=== PATIENT | female | born 2000 | race African-American/Black ===

== ENCOUNTER 2023-11-12 10:44 | Emergency (ER) | payer BC, SELFPAY ==
--- NOTE | ~2023-11-12 | CT_ITS ---
EXAMINATION: CT ABDOMEN AND PELVIS WITH CONTRAST CLINICAL INFORMATION: Abdominal pain and rectal bleeding COMPARISON: KUB from earlier the same day TECHNIQUE: Multidetector volumetric images were obtained from the superior aspect of the liver through the pubic symphysis following administration 85 mL of Omnipaque 350 intravenous contrast. Sagittal and coronal reformatted images were obtained on the technologist's workstation. Oral contrast: Yes This CT examination was performed using dose optimization techniques as appropriate, variously including the following: *Automated exposure control *Adjustment of mA and/or kV according to patient size (this includes techniques or standardized protocols for targeted exams where dose is matched to indication/reason for exam; i.e. extremities or head) *Use of iterative reconstruction technique DLP: 507 mGy-cm FINDINGS: LUNG BASES: The visualized lung bases are unremarkable. LIVER, GALLBLADDER, AND BILIARY TREE: The liver is normal in size, shape, and attenuation. No focal hepatic lesion or biliary ductal dilatation is present. The gallbladder is unremarkable with no evidence of radiopaque gallstones, gallbladder wall thickening, or obvious pericholecystic inflammatory changes. PANCREAS: Unremarkable. SPLEEN: Unremarkable. ADRENAL GLANDS: Unremarkable. KIDNEYS AND URETERS: The kidneys are normal in size, shape, and attenuation. No hydronephrosis, hydroureter, or calculi seen. No perinephric stranding. BLADDER: Unremarkable. GASTROINTESTINAL TRACT: Severe constipation. The small and large bowel are unremarkable. The appendix is unremarkable. ABDOMINAL WALL: No significant hernia is appreciated. LYMPH NODES: Normal. VASCULAR: Unremarkable. PELVIC VISCERA: IUD in the uterus satisfactory position. OSSEOUS STRUCTURES: Unremarkable. CT/CT abdomen pelvis w IV con IMPRESSION: Severe constipation. Fleischner guidelines were followed.
--- NOTE | ~2023-11-12 | XR_ITS ---
EXAMINATION: XR ABDOMEN KUB CLINICAL INDICATION: Constipation COMPARISON: None available. TECHNIQUE: AP view of the abdomen. FINDINGS: AP supine x-rays of the abdomen show nonspecific bowel gas pattern. No abnormal bowel dilatation is seen. Fecal shadows are seen filling the colon down to rectosigmoid junction. XR/XR KUB IMPRESSION: 1. Diffuse fecal retention in the colon down to the rectosigmoid junction without abnormal dilatation. 2. No diagnostic radiographic signs of intestinal obstruction on supine x-ray.
[2023-11-12 11:09] VITALS: BP 138/86; PULSE 95; RESP 20; TEMP 36.8; O2SAT 99; BMI 29.5
--- NOTE | 2023-11-12 11:18 | ED_ITS ---
HPI - General Adult General Chief complaint: GI Bleed Stated complaint: Rectal bleed Time Seen by Provider: 11/12/23 15:44 Source: patient and RN notes reviewed Mode of arrival: ambulatory Limitations: no limitations History of Present Illness HPI narrative: This is a 23-year-old female, with a history of diabetes, presenting to the emergency department for evaluation of rectal bleeding which started yesterday. Patient states that she has been constipated over the last several days. She states that she has been straining to have a bowel movement for the last several days. She states that she is now having rectal bleeding which started yesterday. She states that the rectal bleeding is so significant that it feels the entire toilet. She reports that she developed lower abdominal pain 2 hours into her waiting in the waiting room in the emergency room today. She states that she feels as though she needs to have a bowel movement but is unable to do so. She denies any fevers, chills, chest pain, shortness of breath. She does endorse having some nausea. Reports decreased appetite secondary to her pain. Denies history of similar symptoms in the past. She took MiraLax yesterday without any relief. No other complaints or concerns at this time. MD complaint: Rectal bleeding, abdominal pain Onset (ago): day(s) Severity: moderate Quality: crushing Pain Consistency: constant Relieving factors: none Exacerbating factors: none Associated symptoms: nausea/vomiting Treatments prior to arrival: none Related Data Previous Rx's Medication Instructions Recorded magnesium citrate 300 ml PO ONCE #296 mL 11/12/23 polyethylene glycol 3350 17 17 g PO DAILY 2 weeks #238 grams 11/12/23 gram/dose oral powder (Miralax) Allergies Allergy/AdvReac Type Severity Reaction Status Date / Time No Known Allergies Allergy Verified 11/12/23 11:08 Review of Systems 2 Review of Systems: Yes all other systems are reviewed and are negative Constitutional: Constitutional: Reports as per [facility] Past Medical History Attestation statement: The following information was validated with the patient. Social History Social History Advance Directives: No Advance Directives Information Provided: No Physical Exam ED Vital Signs: Vital Signs - 24 hr 11/12/23 11:09 11/12/23 17:40 Temperature 98.3 F 98.8 F Pulse Rate 95 94 Respiratory Rate 20 16 Blood Pressure 138/86 117/71 Pulse Oximetry 99 94 Oxygen Delivery Method Room Air Room Air BMI result Body Mass Index 29.5 Const General: cooperative, comfortable and no acute distress Orientation/consciousness: patient oriented x3 Limitations: no limitations HENMT Head: Yes normal to inspection, Yes normocephalic and Yes atraumatic Ears: hearing grossly normal bilaterally General nose exam: Normal external nose present Face and sinus: Yes normal facial exam Mouth: Normal oral and palatal mucosa present, oropharynx normal and moist mucous membranes Throat: Yes posterior oropharynx normal Eyes General: appearance normal, both eyes and all related structures Eyelids: Yes eyelids normal Conjunctivae: conjunctivae normal Sclerae: sclerae normal Pupils: Equal, round and reactive pupils present EOM: EOMs intact bilaterally Neck Neck: Yes normal visual inspection, Yes full ROM and Yes no lymphadenopathy Lymphatic: no lymphadenopathy noted Chest Chest palpation & inspection: normal inspection of the chest Resp Effort & Inspection: normal respiratory effort and able to speak in complete sentences Auscultation: clear to auscultation bilaterally, no crackles, no rales, no rhonchi and no wheezes Cardio Rate: regular rate Rhythm: regular rhythm Heart sounds: S1 normal heart sound present and S2 normal heart sound present GI Other: Rectal examination performed with Raven lambert RN present. No external hemorrhoid noted, no internal more noted no bright red blood per rectum. Light brown stool noted. Normal rectal tone Abdomen with tenderness palpation in the periumbilical region, no rebound or guarding hypoactive bowel sounds present Inspection: Yes normal to inspection Skin General skin exam: no rashes or lesions noted Trauma: no lacerations or abrasions Wounds: no wounds Neuro General: patient oriented x3 and moves all extremities Cranial nerves: Yes Equal, round and reactive pupils present Extrem General: Yes normal to inspection Right upper extremity: normal to inspection Left upper extremity: normal to inspection Right lower extremity: normal to inspection Left lower extremity: normal to inspection Course Course Course Narrative: This is a rapid medical exam. Deferred additional HPI, ROS, PE to primary provider. 23 yo female here with constipation, rectal pain/pressure. Will order KUB VSS Reevaluation(s) Reevaluation #1: Stool occult is positive, H&H revealing microcytic anemia, no previous for comparison. Sign-out given to my colleague, Stephan carmichael pending CT abdomen, and chemistry. Time: 19:16 Reevaluation #2: Patient received in sign-out at change of shift pending CT scan of the abdomen pelvis. Patient's CT scan shows severe constipation. No evidence of infectious process or obvious hemorrhage. Patient's chemistries without any significant abnormality. Plan to treat the constipation and refer the patient for outpatient GI follow-up. This was discussed with the patient Time: 22:13 Medications Administered Discontinued Medications Generic Name Dose Route Start Last Admin Trade Name Tita PRN Reason Stop Dose Admin Iohexol 100 ml 11/12/23 20:19 11/12/23 20:19 Iohexol 350 Mg/Ml 100 Ml Infus..Btl IV 11/12/23 20:20 85 ml ONCE ONE Administration Ondansetron HCl 4 mg 11/12/23 19:11 11/12/23 20:27 Ondansetron Hcl 4 Mg/2 Ml Vial IVPUSH 11/12/23 19:12 4 mg ONCE ONE Administration Medical Decision Making Medical Decision Making [facility] Narrative: This is a 23-year-old female, with a history of diabetes, presenting to the emergency department for evaluation of abdominal pain, rectal bleeding, and constipation. On arrival, vital signs within normal limits. A KUB x-ray was obtained, revealing diffuse fecal retention in the colon down to the recto sigmoid junction without abnormal dilatation. No signs of intestinal obstruction on supine x-ray. When patient reports that she is having rectal bleeding she states that it is filling the toilet. Given significant amount of rectal bleeding, will obtain labs, stool occult, and CT abdomen. Patient will be medicated with Zofran Plan: Labs, stool occult, CT abdomen Differential Diagnosis Differential Diagnoses: The differential diagnosis associated with the presentation includes Diverticulitis, diverticulosis, colitis, bowel obstruction, constipation Admission/Observation Consideration of admission/observation: Escalation of care including admission/observation considered Patient would have been admitted to the hospital had her work up had any findings where hospital admission was appropriate and her clinical presentation warranted hospital admission. Lab Data MDM Lab Attestation statement: I reviewed the patient's lab results. No leukocytosis, H&H revealing microcytic anemia with an H&H of 11/35. No previous for comparison. 11/12/23 18:57 11/12/23 18:57 Labs: Lab Results 11/12/23 Range/Units 18:57 WBC 8.7 (4.8-10.8) X10*3/uL RBC 4.84 (4.20-5.50) X10*6/uL Hgb 11.0 L (12.0-16.0) g/dl Hct 35.0 L (37.0-47.0) % MCV 72.3 L (80.0-98.0) fL MCH 22.7 L (27.0-33.0) pg MCHC 31.4 (31.0-35.0) g/dl RDW 14.6 (11.0-16.0) % Plt Count 276 (160-400) X10*3/uL MPV 9.3 L (9.4-12.3) fL Immature Gran % (Auto) 0.2 (0.0-0.4) % Neut % (Auto) 54.8 (45-73) % Lymph % (Auto) 37.5 (20-40) % [place] % (Auto) 7.3 (2-11) % Eos % (Auto) 0.1 (0-4) % Baso % (Auto) 0.1 (0-2) % Lymph # (Auto) 3.2 (1.2-4.9) X10*3/uL [place] # (Auto) 0.6 (0.1-1.2) X10*3/uL Eos # (Auto) 0.0 (0.0-0.4) X10*3/uL Baso # (Auto) 0.0 (0.0-0.2) X10*3/uL Abs Immat Gran (auto) 0.02 (0.00-0.03) X10*3/uL Absolute Neuts (auto) 4.7 (2.0-8.3) x10*3/uL Absolute Nucleated RBC 0.000 (0.0-0.012) X10*3/uL Nucleated RBC % (auto) 0.0 (0.0-0.2) /100WBC PT 13.4 H (11.1-13.3) SEC INR 1.1 (0.9-1.1) APTT 37.3 H (26.0-36.8) SEC Sodium 139 (135-145) mmol/L Potassium 3.7 (3.3-5.1) mmol/L Chloride 108 (96-108) mmol/L Carbon Dioxide 23 (22-29) mmol/L Anion Gap 12 (12-20) BUN 6 L (9-16) mg/dL Creatinine 0.69 (0.5-1.4) mg/dL Estim Creat Clear Calc 132.7 Estimated GFR > 60 Random Glucose 87 (60-115) mg/dL Calcium 9.1 (8.4-10.2) mg/dL Magnesium 1.9 (1.6-2.6) mg/dL Total Bilirubin 0.5 (0.0-1.0) mg/dL AST 22 (5-31) U/L ALT 13 (0-31) U/L Alkaline Phosphatase 50 (39-117) U/L Total Protein 7.2 (6.5-8.0) g/dL Albumin 4.3 (3.5-5.0) g/dL Lipase 13 (8-78) U/L Beta HCG, Quant < 2 mIU/mL Stool Occult Blood POSITIVE (NEGATIVE) Radiology Impression Discussion of test interpretation with radiology: I have reviewed the radiologist's reading. Radiologist Impression: EXAMINATION: XR ABDOMEN KUB CLINICAL INDICATION: Constipation COMPARISON: None available. TECHNIQUE: AP view of the abdomen. FINDINGS: AP supine x-rays of the abdomen show nonspecific bowel gas pattern. No abnormal bowel dilatation is seen. Fecal shadows are seen filling the colon down to rectosigmoid junction. XR/XR KUB IMPRESSION: 1. Diffuse fecal retention in the colon down to the rectosigmoid junction without abnormal dilatation. 2. No diagnostic radiographic signs of intestinal obstruction on supine x-ray. Dictated By: Hannah Santiago Discharge Plan Discharge Clinical Impression: Constipation, Bright red rectal bleeding Patient Disposition: Home, Self-Care Instructions: Constipation (ED), Rectal Bleeding (ED) Additional Instructions: Your workup in the ER today was reassuring. Your CT scan did show severe constipation I recommend drinking about 64 oz of water daily especially if you feel you do not drink any water You should take MiraLax every night for the next 2 weeks Take magnesium citrate, the entire bottle tomorrow Call GI, Dr. Serna to schedule follow-up You may require an outpatient colonoscopy Prescriptions: New polyethylene glycol 3350 [Miralax] 17 gram/dose powder 17 g PO DAILY 14 Days Qty: 238 0RF magnesium citrate Solution 300 ml PO ONCE Qty: 296 0RF Referrals: Amita Serna MD [Physician] - (Bright red blood per rectum) Stand Alone Forms: Work/School Release
[2023-11-12 17:40] VITALS: BP 117/71; PULSE 94; RESP 16; TEMP 37.1; O2SAT 94
[2023-11-12 19:01] LABS: MANUAL DIFF FLAG NO
[2023-11-12 19:03] LABS: Basophils Percent Auto 0.1 % (0-2); Eosinophils Percent Auto 0.1 % (0-4); Imm Gran Abs Auto 0.02 X10*3/uL (0.00-0.03); Imm Gran Pct Auto 0.2 % (0.0-0.4); Lymphocytes Absolute Auto 3.2 X10*3/uL (1.2-4.9); Lymphocytes Percent Auto 37.5 % (20-40); Mean Corpuscular HGB Conc 31.4 g/dl (31.0-35.0); Mean Corpuscular Hemoglobin 22.7 pg (27.0-33.0); Mean Corpuscular Volume 72.3 fL (80.0-98.0); Mean Platelet Volume 9.3 fL (9.4-12.3); Monocytes Absolute Auto 0.6 X10*3/uL (0.1-1.2); Monocytes Percent Auto 7.3 % (2-11); Neutrophils Absolute Auto 4.7 x10*3/uL (2.0-8.3); Neutrophils Percent Auto 54.8 % (45-73); Platelet Count 276 X10*3/uL (160-400); Red Blood Count 4.84 X10*6/uL (4.20-5.50); Red Cell Distribution Width 14.6 % (11.0-16.0); White Blood Count 8.7 X10*3/uL (4.8-10.8)
[2023-11-12 19:10] LABS: OBS Int Ctl Valid YES; OBS1 POSITIVE (NEGATIVE)
[2023-11-12 19:16] LABS: Alanine Aminotransferase 13 U/L (0-31); Albumin Level 4.3 g/dL (3.5-5.0); Alkaline Phosphatase 50 U/L (39-117); Anion Gap 12 (12-20); Aspartate Amino Transferase 22 U/L (5-31); Bilirubin Total 0.5 mg/dL (0.0-1.0); Blood Urea Nitrogen 6 mg/dL (9-16); Calcium 9.1 mg/dL (8.4-10.2); Carbon Dioxide 23 mmol/L (22-29); Chloride 108 mmol/L (96-108); Creatinine Clr Calc Pharmacy 132.7; Estimated Glomerular Filt Rate > 60; Glucose Random 87 mg/dL (60-115); Lipase 13 U/L (8-78); Magnesium 1.9 mg/dL (1.6-2.6); Potassium 3.7 mmol/L (3.3-5.1); Sodium 139 mmol/L (135-145); Total Protein 7.2 g/dL (6.5-8.0)
[2023-11-12 19:17] LABS: INTERNATIONAL NORM RATIO 1.1 (0.9-1.1); Prothrombin Time 13.4 SEC (11.1-13.3)
[2023-11-12 19:19] LABS: Partial Thromboplastin Time 37.3 SEC (26.0-36.8)
--- NOTE | 2023-11-12 19:45 | PC.NURSE ---
Contacted lab to have HCG Quanitative level processed using previously drawn labs. Laboratory processing the order at this time. Awaiting results. Patient aware. IV access established prior to this RN's shift. Plan to give Zofran IV and have CT Scan with IV contrast done.
[2023-11-12 20:03] LABS: HCG Quantitative < 2 mIU/mL
[2023-11-12] MEDS: iohexoL 350 MG/ML 100 ML INFUS..BTL IV (20:19)
[2023-11-12] MEDS: ondansetron HCL 4 MG/2 ML VIAL IVPUSH (20:27)
== END 2023-11-12 23:03 | disposition home or self-care (01) ==
PROVIDERS: Physician Assistant Medical; Emergency Provider Emergency Medicine
DX: K62.5 Hemorrhage of anus and rectum (principal); K59.00 Constipation, unspecified; R10.2 Pelvic and perineal pain; Z79.899 Other long term (current) drug therapy
CPT/HCPCS: 36415; 74018; 74177; 80053; 82272; 83690; 83735; 84702; 85025; 85610; 85730; 96374; 99283; 99284; J2405; Q9967